=== PATIENT | male | born 1965 | race American Indian/Alaskan Native ===

== ENCOUNTER 2016-04-05 11:49 | Inpatient (IN) | payer MEDICAID ==
--- NOTE | 2016-04-05 12:25 | Emergency Department Report ---
ED General Adult HPI - General Chief complaint: Syncope Stated complaint: SYNCOPE Time Seen by Provider: 04/05/16 12:13 Source: patient, family, EMS (ems notes not available at time of chart dictation) Mode of arrival: Stretcher Limitations: Physical Limitation - History of Present Illness Initial comments: This is a 50-year-old male, previously unknown to me. Primary care Dr.: Jane Campbell Neurology: Melo Mcgregor Past medical history: Hypertension, high cholesterol , seizure disorder on vimpat (100 mg twice daily), seizure disorder, stroke 4 years ago with residual right upper extremity and right lower extremity weakness This is a 50-year-old male, previously unknown to me. He presents to the ER with episode of dizziness, loss of consciousness, resolved right-sided weakness. Started at 11:00. It lasted 3-5 minutes. Now resolved. He describes a sensation of dizziness, thinks he passed out, his reports that he passed out, he did not hit his head. Symptoms were constant, had no exacerbating or relieving factors. Prior to the event, there was no headache, neck pain, chest pain, abdominal pain or shortness of breath. He denies irritative and obstructive urinary symptoms. He denies toxic ingestions. His reports that his typical seizure-like activities generalized tonic-clonic, an episode today did not appear to be consistent with a prior episode. -: Sudden Consistency: now resolved Improves with: none Worsens with: none Associated Symptoms: confusion, syncope, weakness - Related Data Home Medications Medication Instructions Recorded Confirmed Last Taken Lacosamide [Vimpat] 100 mg PO BID 04/05/16 04/05/16 Unknown Lisinopril/Hydrochlorothiazide 1 tab PO QDAY 04/05/16 04/05/16 Unknown [Zestoretic 10-12.5 mg] Metoprolol [Lopressor] 25 mg PO BID 04/05/16 04/05/16 Unknown Simvastatin [Zocor TAB] 20 mg PO QHS 04/05/16 04/05/16 Unknown Allergies Allergy/AdvReac Type Severity Reaction Status Date / Time No Known Allergies Allergy Unverified 04/05/16 12:06 ED Review of Systems ROS: Stated complaint: SYNCOPE Other details as noted in HPI Constitutional: weakness. denies: fever Eyes: denies: eye discharge ENT: denies: epistaxis Respiratory: denies: shortness of breath Cardiovascular: syncope Gastrointestinal: denies: abdominal pain, nausea, diarrhea Genitourinary: denies: urgency, dysuria Musculoskeletal: denies: back pain, joint swelling, arthralgia Skin: denies: rash, lesions Neurological: weakness Psychiatric: as per HPI. denies: anxiety ED Past Medical Hx - Past Medical History Previous Medical History?: Yes Hx Hypertension: Yes Hx CVA: Yes Hx Seizures: Yes - Surgical History Past Surgical History?: Yes Additional Surgical History: right foot - Social History Smoking Status: Former Smoker Substance Use Type: None - Medications Home Medications: Home Medications Medication Instructions Recorded Confirmed Last Taken Type Lacosamide [Vimpat] 100 mg PO BID 04/05/16 04/05/16 Unknown History Lisinopril/Hydrochlorothiazide 1 tab PO QDAY 04/05/16 04/05/16 Unknown History [Zestoretic 10-12.5 mg] Metoprolol [Lopressor] 25 mg PO BID 04/05/16 04/05/16 Unknown History Simvastatin [Zocor TAB] 20 mg PO QHS 04/05/16 04/05/16 Unknown History ED Physical Exam - General Limitations: Physical Limitation General appearance: alert, in no apparent distress - Head Head exam: Present: atraumatic, normocephalic - Eye Eye exam: Present: normal appearance, PERRL, EOMI. Absent: nystagmus - ENT ENT exam: Present: normal exam, normal orophraynx, mucous membranes moist, normal external ear exam - Neck Neck exam: Present: normal inspection, full ROM. Absent: tenderness, meningismus - Respiratory Respiratory exam: Present: normal lung sounds bilaterally. Absent: respiratory distress, wheezes, rales, rhonchi, stridor, chest wall tenderness - Cardiovascular Cardiovascular Exam: Present: regular rate, normal rhythm, normal heart sounds. Absent: bradycardia, tachycardia, irregular rhythm, systolic murmur, diastolic murmur, rubs, gallop - GI/Abdominal GI/Abdominal exam: Present: soft, normal bowel sounds. Absent: distended, tenderness, guarding, rebound, rigid, pulsatile mass - Rectal Rectal exam: Present: deferred - Extremities Exam Extremities exam: Present: normal inspection (minimal contracture right upper extremity), normal capillary refill. Absent: tenderness, pedal edema, joint swelling, calf tenderness, other - Back Exam Back exam: Present: normal inspection, full ROM. Absent: tenderness, CVA tenderness (R), CVA tenderness (L), muscle spasm, paraspinal tenderness, vertebral tenderness - Neurological Exam Neurological exam: Present: alert, oriented X3, motor sensory deficit (chronic weakness right upper extremity, right lower extremity. 4/5 strength right upper extremity, right lower extremity.), other (facial sensation intact to the bilateral V1, V2, V3 distribution. Extraocular movements are intact bilaterally. Tongue is midline. Shoulder shrug is midline. Shoulder shrug is intact. There is 5/5 strength in the left upper and left lower extremity. Sensation is intact to light touch in 4 extremities. Alert and oriented 3. Patient reports that his right upper and right lower extremity strength are back to their baseline.). Absent: normal gait (patient walks with a broad- based gait.) - Psychiatric Psychiatric exam: Present: normal affect, normal mood - Skin Skin exam: Present: warm, dry, intact, normal color. Absent: rash ED Course Vital Signs 04/05/16 04/05/16 12:01 13:53 Temperature 98.3 F Pulse Rate 63 Respiratory 11 L 12 Rate Blood Pressure 119/60 O2 Sat by Pulse 100 100 Oximetry - Reevaluation(s) Reevaluation #1: 04/05/16 13:09 Differential diagnosis: Transient ischemic attack, arrhythmia, structural cardiac disease, pneumonia, urinary tract infection, electrolyte imbalance Assessment and plan: 50-year-old male with resolved right-sided weakness, dizziness, loss of consciousness. There are no pulmonary embolus or DVT risk factors, and he is low risk by well's criteria. He reports that he is at his neurologic baseline, and his corroborates this. He has no chest pain or headache. We will obtain CT scan of the head, x-ray chest, laboratory studies, urinalysis. We will reassess after initial data points. Plan to admit for syncope versus TIA was initial data points back. Reevaluation #2: 04/05/16 13:33 CT scan of the head negative for acute findings. Chronic findings noted. X- ray chest appreciated. Laboratory studies unremarkable. Urinalysis pending. Case is discussed with the hospital physician, Dr. Lacey, who accepts the patient to his service. Reevaluation #3: 04/05/16 14:13 Dr Lacey accepts patient to his service ED Medical Decision Making - Lab Data Result diagrams: 04/05/16 12:46 04/05/16 12:46 Vital Signs 04/05/16 12:01 Temperature 98.3 F Pulse Rate 63 Respiratory 11 L Rate Blood Pressure 119/60 O2 Sat by Pulse 100 Oximetry Lab Results 04/05/16 Range/Units 12:46 WBC 7.2 (4.5-11.0) K/mm3 RBC 5.39 H (3.65-5.03) M/mm3 Hgb 15.5 H (11.8-15.2) gm/dl Hct 47.5 H (35.5-45.6) % MCV 88 (84-94) fl MCH 29 (28-32) pg MCHC 33 (32-34) % RDW 13.2 (13.2-15.2) % Plt Count 273 (140-440) K/mm3 - EKG Data When compared to previous EKG there are: previous EKG unavailable 04/05/16 13:10 normal sinus, 66 bpm, motion artifact, nonspecific T-wave abnormality, not morphologically consistent with STEMI. - Radiology Data Radiology results: report reviewed, image reviewed Noncontrast CT scan of the head negative for acute disease. Chronic findings noted. X-ray chest negative Critical care attestation.: If time is entered above; I have spent that time in minutes in the direct care of this critically ill patient, excluding procedure time. ED Disposition Clinical Impression: TIA (transient ischemic attack), Syncope Disposition: OP ADMITTED IP TO THIS HOSP Is pt being admited?: Yes Does the pt Need Aspirin: Yes Condition: Good Instructions: Syncope (ED) Referrals: PRIMARY CARE, [Primary Care Provider] - 3-5 Days
--- NOTE | 2016-04-05 12:50 | Admit Criteria Form ---
Admission Criteria Documentation: SYNCOPE Clinical Indications for Admission to Inpatient Care ( Place 'X' for any and all applicable criteria): Admission is indicated for syncope and ANY ONE of the following (1)(2)(3)(4)(5) (6)(7) : [X ]I. Inpatient admission required rather than observation care (Also use Syncope: Observation Care Criteria as appropriate) because of ANY ONE of the following: [ ]a) Hemodynamic instability that is severe or persistent [ ]b) Cardiac arrhythmias of immediate concern identified or strongly suspected (eg, needs electrophysiologic study) [ ]c) Acute coronary syndrome identified (Also use Myocardial Infarction or Angina Criteria form ) [ ]d) Structural cardiac disorder (eg, aortic stenosis) suspected as cause that requires immediate correction [ ]e) Respiratory symptoms (eg, dyspnea, tachypnea) that are severe or persistent [X ]f) Neurologic signs or symptoms that are severe or persistent ( eg, stroke, seizures, altered mental status) [ ]g) Severe electrolyte abnormalities requiring inpatient care [ ]h) Supplemental oxygen or respiratory treatment for over 24 hrs that are performable only in acute inpatient setting [ ]i) IV fluid to replace significant ongoing (eg, for over 24 hrs ) losses (>3 L/m2 per day) [ ]j) Continuous intravenous infusion of anticoagulation, platelet inhibitor, vasoactive, or antiarrhythmic medication(15)(16) [ ]k) Pulmonary artery catheter monitoring [ ]l) Temporary pacemaker placement(17) [ ]m) Emergent cardioversion(18) [ ]n) Other conditions, treatment or monitoring requiring inpatient admission [ ]II. Suspicion of imminently dangerous cause (eg, rare causes like pericardial tamponade, pulmonary embolism) [ ]III. Syncope causing severe injury requiring hospitalization Extended stay beyond goal length of stay may be needed for(28) [ ]a) Dangerous arrhythmia(15)(23)(27)(29) [ ]b) Myocardial ischemia [ ]c) Seizure disorder [ ]d) Syncope-related injuries The original [employer] content created by [employer] has been revised. The portions of the content which have been revised are identified through the use of italic text or in bold, and [employer] has neither reviewed nor approved the modified material. All other unmodified content is copyright [facility] [employer] Please see references footnoted in the original [facility] edition 2016 Admission Criteria Met: Yes
[2016-04-05 13:03] LABS: Hematocrit 47.5 % (35.5-45.6); Hemoglobin 15.5 gm/dl (11.8-15.2); Mean Corpuscular HGB Conc 33 % (32-34); Mean Corpuscular Hemoglobin 29 pg (28-32); Mean Corpuscular Volume 88 fl (84-94); Platelet Count 273 K/mm3 (140-440); Red Blood Count 5.39 M/mm3 (3.65-5.03); Red Cell Distribution Width 13.2 % (13.2-15.2); White Blood Count 7.2 K/mm3 (4.5-11.0)
[2016-04-05 13:13] LABS: INR 1.01 (0.87-1.13)
[2016-04-05 13:14] LABS: Partial Thromboplastin Time 27.5 Sec. (24.2-36.6)
[2016-04-05 13:19] LABS: Anion Gap 18 mmol/L; Blood Urea Nitrogen 14 mg/dL (9-20); Calcium 9.4 mg/dL (8.4-10.2); Carbon Dioxide 24 mmol/L (22-30); Chloride 99.8 mmol/L (98-107); Glucose 158 mg/dL (75-100); Potassium 3.6 mmol/L (3.6-5.0); Sodium 138 mmol/L (137-145)
--- NOTE | 2016-04-05 13:24 | Cat Scan Report ---
CT scan of head without contrast: History: Suspected stroke. Findings: Ventricles are normal in size and midline in location. No evidence of acute ischemia, hemorrhage or mass. Ill-defined area of low attenuation left periventricular region probably secondary to chronic ischemia or small vessel ischemic changes. No extra-axial fluid collection. Normal brainstem cerebellum. Normal sinuses and mastoid air cells. Impression: Ill-defined area of low attenuation left periventricular region with dilatation of the adjacent body of the lateral ventricle probably suggestive chronic ischemia.
[2016-04-05] MEDS ORDERED: BABY ASPIRIN PO ONE (13:34)
[2016-04-05] MEDS ORDERED: ZOFRAN IV PRN (14:08)
[2016-04-05] MEDS ORDERED: SODIUM CHLORIDE FLUSH SYRINGE 10 ML IV PRN (14:08)
[2016-04-05] MEDS ORDERED: DUONEB 0.5 MG-3 MG/3 ML SOLN IH PRN (14:08)
[2016-04-05] MEDS ORDERED: TYLENOL PO PRN (14:08)
--- NOTE | 2016-04-05 14:09 | XRay Report ---
Single view chest: History: Syncope. Findings: Borderline cardiomegaly. Trachea is midline. Mild pulmonary vascular congestion. No consolidation or pleural effusion. Impression: Borderline cardiomegaly with mild pulmonary vascular congestion.
[2016-04-05] MEDS ORDERED: PROVENTIL IH PRN (14:53)
[2016-04-05 15:43] LABS: Urine Drugs of Abuse Note Disclamer
[2016-04-05 15:52] LABS: Bilirubin,Urine NEG (Negative); Blood,Urine NEG (Negative); Ketones,Urine NEG (Negative); Leukocyte Esterase,Urine NEG (Negative); Mucus,Urine FEW /HPF; Nitrite,Urine NEG (Negative); Protein,Urine <15 mg/dL mg/dL (Negative); Urobilinogen,Urine < 2.0 mg/dL (<2.0)
--- NOTE | 2016-04-05 17:29 | History and Physical Report ---
History of Present Illness Date of examination: 04/05/16 Date of admission: 04/05/16 13:54 Chief complaint: Loss of consciousness History of present illness: Patient is a 50-year-old man history of CVA with right-sided hemiparesis, hypertension, dyslipidemia and seizure disorder who presents with 5-10 minutes syncopal episode witnessed by his . Patient was seen sitting down when he felt warm and when he stood up he felt lightheaded and dizzy. He passed out. Witnessed by ; says he is did not have seizure activity. He was confused after waking, until EMS came. Now he is back to his baseline. He denies any chest pain, headaches, palpitation or any other symptoms. He had atypical presentation prior stroke 4 years ago. Past History Past Medical History: other (as HPI) Past Surgical History: Other Social history: full code, other ( is a smoker). denies: smoking, alcohol abuse (foot surgery), prescription drug abuse, IV drug use Family history: hypertension Medications and Allergies Allergies Allergy/AdvReac Type Severity Reaction Status Date / Time No Known Allergies Allergy Unverified 04/05/16 12:06 Home Medications Medication Instructions Recorded Confirmed Last Taken Type Lacosamide [Vimpat] 100 mg PO BID 04/05/16 04/05/16 Unknown History Lisinopril/Hydrochlorothiazide 1 tab PO QDAY 04/05/16 04/05/16 Unknown History [Zestoretic 10-12.5 mg] Metoprolol [Lopressor] 25 mg PO BID 04/05/16 04/05/16 Unknown History Simvastatin [Zocor TAB] 20 mg PO QHS 04/05/16 04/05/16 Unknown History busPIRone [Buspar] 5 mg PO BID 04/05/16 04/05/16 Unknown History Active Meds: Active Medications Acetaminophen (Tylenol) 650 mg PO Q4H PRN PRN Reason: Pain, Mild (1-3) Albuterol (Proventil) 2.5 mg IH Q4HRT PRN PRN Reason: Shortness Of Breath Aspirin (Aspirin) 325 mg PO QDAY MARIANA Enoxaparin Sodium (Lovenox) 40 mg SUB-Q QDAY MARIANA Ondansetron HCl (Zofran) 4 mg IV Q8H PRN PRN Reason: N/V unrelieved by Reglan Simvastatin (Zocor) 20 mg PO QHS MARIANA Sodium Chloride (Sodium Chloride Flush Syringe 10 Ml) 10 ml IV PRN PRN PRN Reason: LINE FLUSH Review of Systems All systems: negative (as HPI and all other ROS reviewed and negative.) Exam - Physical Exam Narrative exam: GEN: WDWN, NAD, AWAKE, ALERT, ORIENTATED 3 HEENT: NCAT, PERRL, EOMI, OP CLEAR NECK: SUPPLE, NO THYROMEGALY, NO JVD, NO LAD CVS: RRR, NORMAL S1S2 LUNGS/CHEST: CTA B, NORMAL CHEST EXPANSION B, GOOD AIR ENTRY B ABD: SOFT NTND, GBS, NO REBOUND OR GUARDING EXT/SKIN: NO SIGNIFICANT EDEMA OR RASH MSK: Right hemiparesis NEURO: CN 2-12 GROSSLY INTACT, NO NEW FOCAL DEFICITS PSY: CALM - Constitutional Vitals: Temp Pulse Resp BP Pulse Ox 98.3 F 63 16 105/68 99 04/05/16 12:01 04/05/16 14:00 04/05/16 14:00 04/05/16 14:00 04/05/16 14:00 Results - Labs CBC & Chem 7: 04/05/16 12:46 04/05/16 12:46 - Imaging and Cardiology CT Scan - head: report reviewed Assessment and Plan Patient is a 50-year-old man history of CVA with right-sided hemiparesis, hypertension, dyslipidemia and seizure disorder who presents with 5-10 minutes syncopal episode witnessed by his . Patient was seen sitting down when he felt warm and when he stood up he felt lightheaded and dizzy. He passed out. Witnessed by ; says he is did not have seizure activity. He was confused after waking, until EMS came. Now he is back to his baseline. He denies any chest pain, headaches, palpitation or any other symptoms. He had atypical presentation prior stroke 4 years ago. 1. Syncope: carotids 2. TIA: mri brain 3. Seizure: consult neuro
--- NOTE | 2016-04-05 17:52 | Magnetic Resonance Report ---
FINAL REPORT PROCEDURE: MR MRA/MRV HEAD WO CON TECHNIQUE: Axial 3-D [id number] MR angiography of the [place] and brain was performed. The source images were reconstructed in various views using maximum intensity projection. HISTORY: stroke COMPARISON: No prior studies are available for comparison. FINDINGS: Right vertebral artery is dominant. There is tortuosity of the vertebrobasilar system a could be due to chronic hypertension. Large left posterior communicating artery is seen. Both P1 segments are present. No right posterior communicating artery is seen. There is absence of the right A1 segment which is a normal variant finding. Anterior communicating artery supplies the right MITZY circulation. Probable artifacts cause loss of signal in the ICAs at the skull base. The right ICA is smaller than the left ICA in the upper neck which could be due to stenosis in the neck but may be associated with the absent right A1 segment. Possible minimal stenosis is seen in the supraclinoid portion of the distal right ICA which is accentuated due to motion. Distal MCA branches are not well seen, left worse than right. It is uncertain if this is due to the motion or due to more distal disease. IMPRESSION: Motion limits the study. There is normal variant architecture of the [place] of [place]. There may be mild stenosis in the supraclinoid portion of the distal right ICA. Right ICA is smaller than the left ICA which may be due to normal variant architecture but could be due to stenosis of the right ICA or CCA in the neck. Distal MCA branches are not well seen, left worse than right, which may be due to distal disease or motion.
--- NOTE | 2016-04-05 17:59 | Magnetic Resonance Report ---
FINAL REPORT PROCEDURE: MR BRAIN WO CON TECHNIQUE: Magnetic resonance imaging of the brain was performed without contrast material. HISTORY: stroke COMPARISON: CT exam dated April 05, 2016 FINDINGS: Cerebellar tonsils are normally positioned. There is no hydrocephalus. No areas of restricted diffusion are seen in the brain. Encephalomalacia and gliosis is seen in the left parietal lobe consistent with old CVA. Minimal other chronic small vessel ischemic changes are seen in the periventricular white matter. No intracranial hemorrhage or mass effect is seen. Small retention cyst is suspected in the right maxillary sinus with trace mucosal thickening in a left ethmoid air cell. IMPRESSION: Old left parietal CVA is seen without evidence of recent CVA.
[2016-04-05] MEDS: ZOCOR PO SCH (22:00)
[2016-04-06] MEDS: LOVENOX SUB-Q SCH (18:56)
[2016-04-06] MEDS: ASPIRIN PO SCH (18:56)
[2016-04-06] MEDS: ZOCOR PO SCH (22:20)
--- NOTE | 2016-04-07 07:47 | Vascular Lab Report ---
CAROTID DUPLEX STUDY: RIGHT PSVEDV CCA PROX:[id number] CCA DIST:8815 ICA PROX:8113 ICA MID:6018 ICA DIST:5014 ECA: 73 VERT: 40 6 LEFT PSVEDV CCA PROX:[id number] CCA DIST:8518 ICA PROX:429 ICA MID:4915 ICA DIST:5115 ECA: 45 VERT: 34 4 REASON FOR EXAM: Stroke. COMMENTS ON THE RIGHT: Doppler frequency analysis is consistent with 16 to 49 percent diameter reduction of the internal carotid artery. Minimal amount of plaque is seen. The common carotid artery is patent. The external carotid artery is patent. The vertebral artery has antegrade flow. COMMENTS ON THE LEFT: Doppler frequency analysis is consistent with 16 to 49 percent diameter reduction of the internal carotid artery. Minimal amount of plaque is seen. The common carotid artery is patent. The external carotid artery is patent. The vertebral artery has antegrade flow. IMPRESSION: Less than 50% diameter reduction in the internal carotid arteries bilaterally. Consider repeat carotid artery duplex in 12 months.
[2016-04-07 08:17] VITALS: BP 109/73
[2016-04-07] MEDS: LOVENOX SUB-Q SCH (10:08)
[2016-04-07] MEDS: ASPIRIN PO SCH (10:08)
--- NOTE | 2016-04-07 11:31 | Discharge Summary ---
Providers - Providers Date of Admission: 04/05/16 13:54 Attending physician: SVETA MO 04/05/16 14:08 Consult to Case Management [CONS] Routine Services Needed at Discharge: Physical Therapy Notified:: COPY LEFT ON CM COMPUTER Consult to Dietitian/Nutrition [CONS] Routine Physician Instructions: Reason For Exam: Reason for Consult: Nutrition Recommendations Reason for Consult: Diet education Occupational Therapy Evaluate and Treat [CONS] Routine Comment: Reason For Exam: Neuro deficits Physical Therapy Evaluation and Treat [CONS] Routine Comment: Reason For Exam: Neuro deficits 04/05/16 14:10 Speech Therapy Evaluation and Treat [CONS] Routine Reason For Exam: swallow eval 04/05/16 14:13 Consult to Physician [CONS] Routine Consulting Provider: ESTEBAN SALAMANCA Reason For Exam: syncope sz vs stroke Place consult to:: Ari MERINO Notified:: ANSWERING SERVICES Phone number called:: [phone] Was contact made?: Yes If yes, spoke with:: LEXI Time called:: 16:10 04/05/16 18:44 Consult to Physician [CONS] Routine Consulting Provider: ESTEBAN SALAMANCA Reason For Exam: seizure disorder Place consult to:: Ari MERINO Notified:: office Phone number called:: Was contact made?: Yes If yes, spoke with:: aba Time called:: 13:54 Primary care physician: POLISHING MACHINE TENDER Hospitalization Condition: Good Hospital course: 50 YO Male admitted for recurrent stroke/TIA. Pt treated IAW stroke protocol. Pt treated with antiplatelet therapy and supportive care. Pt symptoms resolved with supportive care. Pt convalesced well during hospital course. Pt evaluated prior to discharge but no significant new physical exam findings since admission. Pt medically optimized. Pt subsequently discharged home with home health/PT and instructed to f/u pcp 1wk, and Neurology prn. Pt counseled regarding medication compliance. 34 minutes dedicated to patient discharge and education. Disposition: DC/TX HOME UNDER HOME HEALTH Core Measure Documentation - Palliative Care Palliative Care/ Comfort Measures: Not Applicable - Core Measures Any of the following diagnoses?: stroke - Stroke Discharge Requirements Statin for LDL = or >70 mg/dl on DC: Yes Anticoag for atrial fib/atrial flutter: Not Applicable Antithrombotic for ischemic stroke: Yes Exam - Constitutional Vitals: Temp Pulse Resp BP Pulse Ox 98.1 F 71 15 109/73 97 04/07/16 07:40 04/07/16 07:40 04/07/16 07:40 04/07/16 07:40 04/07/16 07:47 General appearance: Present: no acute distress, well-nourished - EENT Eyes: Present: PERRL ENT: hearing intact, clear oral mucosa - Neck Neck: Present: supple, normal ROM - Respiratory Respiratory effort: normal Respiratory: bilateral: CTA - Cardiovascular Heart Sounds: Present: S1 & S2. Absent: rub, click - Extremities Extremities: pulses symmetrical, No edema Peripheral Pulses: within normal limits - Abdominal General gastrointestinal: Present: soft, non-tender, non-distended, normal bowel sounds Male genitourinary: Present: normal - Integumentary Integumentary: Present: clear, warm, dry - Musculoskeletal Musculoskeletal: right sided weakness - Psychiatric Psychiatric: appropriate mood/affect, intact judgment & insight - Neurologic Neurologic: CNII-XII intact, no gait normal Plan Activity: advance as tolerated Follow up with: PRIMARY CARE, [Primary Care Provider] - 3-5 Days Prescriptions: Clopidogrel [Plavix] 75 mg PO QDAY #30 tablet
== END 2016-04-07 16:42 | disposition home health service (06) | DRG 69 ==
LOC: ED 11:49 → 3A 13:54
PROVIDERS: ADMIT Internal Medicine; ATTEND Internal Medicine
DX: G45.9 Transient cerebral ischemic attack, unspecified (principal); I69.351 Hemiplegia and hemiparesis following cerebral infarction affecting right dominant side; I10 Essential (primary) hypertension; E78.5 Hyperlipidemia, unspecified; G40.909 Epilepsy, unspecified, not intractable, without status epilepticus; Z79.899 Other long term (current) drug therapy; Z98.890 Other specified postprocedural states; Z87.891 Personal history of nicotine dependence; Z82.49 Family history of ischemic heart disease and other diseases of the circulatory system
CPT/HCPCS: 36415; 70450; 70544; 70551; 71010; 80048; 80307; 81001; 82962; 84484; 85027; 85610; 85730; 93005; 93010; 93306; 93880; J1650